=== PATIENT | female | born 1960 | race Caucasian/White ===

== ENCOUNTER 2017-02-01 07:23 | Emergency (ER) | payer MEDICARE, MEDICAID ==
[~2017-02-01] VITALS: Ht 167.6 cm; Wt 82.0 kg
[2017-02-01 07:28] VITALS: BP 147/96
[2017-02-01] MEDS ORDERED: PRED1TAB PO (07:38)
[2017-02-01] MEDS ORDERED: METH2.5T PO (07:38)
== END 2017-02-01 08:24 | disposition home or self-care (01) ==
LOC: ED 08:18
DX: Z76.0 Encounter for issue of repeat prescription (principal); M06.831 Other specified rheumatoid arthritis, right wrist; M06.861 Other specified rheumatoid arthritis, right knee; M06.832 Other specified rheumatoid arthritis, left wrist
CPT/HCPCS: 99283